=== PATIENT | female | born 1975 ===

== ENCOUNTER 2021-06-22 10:12 | Emergency (ER) | payer SELFPAY ==
[~2021-06-22] VITALS: Ht 167.6 cm; Wt 72.7 kg
[2021-06-22 10:26] VITALS: TEMP 98
[2021-06-22 12:12] LABS: BASO % 0.2 % (0.0-2.0); EOS # 0.1 K/mm3 (0.0-0.7); EOS % 0.9 % (0.0-4.0); GRAN # 3.2 K/mm3 (1.4-6.5); GRAN % 58.2 % (42.2-75.2); LYMPH # 1.7 K/mm3 (1.2-3.4); LYMPH % 31.3 % (20.0-51.0); MEAN CELL VOLUME 81 fl (80.0-100.0); MEAN CORPUSCULAR HGB CONC 32 g/dl (33.0-37.0); MEAN PLATELET VOLUME 9.1 fl (7.4-10.4); MONO # 0.5 K/mm3 (0.1-0.6); MONO % 9.2 % (1.7-9.3); PLATELET COUNT 303 K/mm3 (130-400); RED BLOOD COUNT 3.46 M/mm3 (4.10-5.30)
[2021-06-22 12:15] LABS: HEMATOCRIT 28.1 % (37.0-47.0); HEMOGLOBIN 9.1 g/dl (12.5-16.0); MEAN CORPUSCULAR HEMOGLOBIN 26 pg (27-31)
[2021-06-22 12:26] LABS: ALBUMIN 3.7 gm/dL (3.5-5.0); BILIRUBIN,TOTAL 0.2 mg/dL (0.2-1.2); CALCIUM 9.2 mg/dL (8.4-10.2); CREATININE, serum 0.76 mg/dL (0.57-1.11); POTASSIUM 4.2 mmol/L (3.5-4.5); TOTAL PROTEIN 6.7 gm/dL (6.2-8.1)
[2021-06-22 13:17] VITALS: BP 159/92; PULSE 83
[2021-06-22] MEDS ORDERED: NAPROSYN500 MG PO (13:21)
== END 2021-06-22 14:06 | disposition home or self-care (01) ==
LOC: COL.ER 10:12
PROVIDERS: Nurse Practitioner Primary Care
DX: N94.6 Dysmenorrhea, unspecified (principal); N83.201 Unspecified ovarian cyst, right side